=== PATIENT | female | born 1980 | race African-American/Black ===

== ENCOUNTER 2016-11-02 17:02 | Emergency (ER) | payer MEDICAID, OTHER ==
[~2016-11-02] VITALS: Ht 172.7 cm; Wt 79.0 kg
[2016-11-02 18:30] LABS: EOSINOPHILS % 4.1 % (0.0-5.0); HEMATOCRIT. 35.5 % (36.0-48.0); HEMOGLOBIN. 11.5 g/dL (12.0-16.0); LYMPHOCYTES % 30.5 % (20.0-50.0); MEAN CORPUSCULAR HEMOGLOBIN 29.3 pg (28.0-32.0); MEAN CORPUSCULAR HGB CONC 32.4 g/dL (31.0-37.0); MEAN CORPUSCULAR VOLUME 90.2 fL (81.0-99.0); MEAN PLATELET VOLUME 7.7 fl (7.4-10.4); MONOCYTES % 9.3 % (2.0-8.0); NEUTROPHILS % 55.1 % (40.0-76.0); PLATELET 276 x1000/uL (130-400); RED BLOOD CELL COUNT 3.94 mill/uL (4.2-5.4); RED CELL DISTRIBUTION WIDTH 20.4 % (11.6-14.6); WHITE BLOOD COUNT 4.9 x1000/uL (4.5-11.0)
[2016-11-02] MEDS ORDERED: ACETAMINOPHEN 650MG/20.3ML UDC PO ONE (18:30)
[2016-11-02 18:44] LABS: CHLORIDE 104 mEq/L (98-107); INDEX HEMOLYSI 1 (1-3); INDEX ICTERIC 1 (1-4); INDEX LIPEMIC 1 (1-3)
[2016-11-02 18:52] LABS: ANION GAP 14; CALCIUM 9.1 mg/dL (8.5-10.1); CARBON DIOXIDE 26 mEq/L (21-32); UREA NITROGEN BLOOD 6 mg/dL (7-21); eGFR > 60 mL/min (>60)
[2016-11-02 19:06] LABS: B-HCG QUANTITATIVE 4189 mIU/mL (<3)
[2016-11-02] MEDS ORDERED: RHO(D) IMMUNE GLOBULIN 300 MCG/SYR IM ONE (20:15)
[2016-11-02 22:37] VITALS: BP 133/77
== END 2016-11-02 23:04 | disposition home or self-care (01) ==
LOC: ER 17:45
DX: O03.4 Incomplete spontaneous abortion without complication (principal); O36.0910 Maternal care for other rhesus isoimmunization, first trimester, not applicable or unspecified; Z3A.01 Less than 8 weeks gestation of pregnancy; Z98.890 Other specified postprocedural states
CPT/HCPCS: 36415; 36430; 76830; 76856; 80048; 84702; 85025; 86850; 86900; 86901; 90384; 96372; 99285; Z7610

== ENCOUNTER 2020-11-14 04:55 | Emergency (ER) | payer MEDICAID ==
[~2020-11-14] VITALS: Ht 172.7 cm; Wt 91.0 kg
[2020-11-14 05:56] LABS: *AMPHETAMINES SCREEN URINE NEGATIVE (NEGATIVE); *BARBITURATES SCREEN URINE NEGATIVE (NEGATIVE); *BENZODIAZEPINES SCREEN URINE NEGATIVE (NEGATIVE); *COCAINE SCREEN URINE NEGATIVE (NEGATIVE)
[2020-11-14 05:57] LABS: CANNABINOID URINE SCREEN NEGATIVE (NEGATIVE); OPIATES URINE SCREEN NEGATIVE (NEGATIVE); PHENCYCLIDINE URINE SCREEN NEGATIVE (NEGATIVE)
[2020-11-14 05:58] LABS: METHADONE URINE SCREEN NEGATIVE (NEGATIVE)
[2020-11-14 06:22] LABS: BASOPHILS % 0.7 % (0.0-2.0); CHLORIDE 106 mEq/L (98-107); EOSINOPHILS % 5.3 % (0.0-5.0); HEMATOCRIT. 36.9 % (36.0-48.0); HEMOGLOBIN. 11.7 g/dL (12.0-16.0); LYMPHOCYTES % 26.5 % (20.0-50.0); MEAN CORPUSCULAR HEMOGLOBIN 25.5 pg (28.0-32.0); MEAN CORPUSCULAR VOLUME 80.6 fL (81.0-99.0); MEAN PLATELET VOLUME 8.3 fl (7.4-10.4); MONOCYTES % 8.4 % (2.0-8.0); NEUTROPHILS % 59.1 % (40.0-76.0); PLATELET 297 x1000/uL (130-400); RED BLOOD CELL COUNT 4.57 mill/uL (4.2-5.4); RED CELL DISTRIBUTION WIDTH 16.7 % (11.6-14.6)
[2020-11-14 06:26] LABS: ETHANOL BLOOD < 10 mg/dL
[2020-11-14 11:00] VITALS: BP 140/65
== END 2020-11-14 12:14 | disposition home or self-care (01) ==
LOC: ER 04:55
DX: R44.0 Auditory hallucinations (principal); I10 Essential (primary) hypertension
CPT/HCPCS: 36415; 80053; 80305; 80307; 80320; 80329; 85025; 93005; 99284; G0480